=== PATIENT | male | born 1955 | race Caucasian/White ===

== ENCOUNTER → 2017-07-25 | Outpatient (CLI) | payer OTHER ==
[2014-01-31 09:52] VITALS: BP 123/82
[~2017-07-25] MED LIST: ASPIR LOW81 MG PO; FISH OIL1000 MG PO; HCTZ/LISINOPRIL1 TA1 PO; MULTIPLE VITAMI1 TAB PO; NAPROSYN250 M1 PO
[2017-07-25 12:01] LABS: EOS # 0.1 (0.04-0.40); EOS % 1.1 % (0.0-4.0); HEMATOCRIT 46.5 % (42.0-52.0); HEMOGLOBIN 15.3 g/dL (13.5-18.0); LYMPH# 1.7 (1.50-4.00); MEAN CELL VOLUME 86 fl (78-100); MEAN CORPUSCULAR HEMOGLOBIN 28 pg (27-31); MEAN CORPUSCULAR HGB CONC 33 g/dL (33-37); MEAN PLATELET VOLUME 9.1 fl (7.4-10.4); MONO # 0.6 (0.20-0.80); PLATELET COUNT 296 K/mm3 (130-400); RED BLOOD COUNT 5.43 M/mm3 (4.20-5.60); RED CELL DISTRIBUTION WIDTH 13.2 % (11.5-14.5); WHITE BLOOD COUNT 6.5 K/mm3 (4.8-10.8)
[2017-07-25 12:20] LABS: ALBUMIN 4.2 g/dL (3.5-5.0); BUN/CREATININE RATIO 24.3 (6.0-26.0); CALCIUM 9.3 mg/dL (8.4-10.2); POTASSIUM 4.2 mmol/L (3.6-5.0); TOTAL BILIRUBIN 0.5 mg/dL (0.2-1.3); TOTAL PROTEIN 7.5 g/dL (6.3-8.2)
== END ==
LOC: LAB 11:41
PROVIDERS: Internal Medicine
DX: Z00.00 Encounter for general adult medical examination without abnormal findings (principal); Z12.5 Encounter for screening for malignant neoplasm of prostate

== ENCOUNTER → 2019-03-19 | Outpatient (CLI) | payer MEDICARE, OTHER ==
[2014-01-31 09:52] VITALS: BP 123/82
[2019-03-19 10:16] LABS: BASO # 0.1 (0.02-0.10); EOS # 0.1 (0.04-0.40); HEMATOCRIT 48.1 % (42.0-52.0); HEMOGLOBIN 15.9 g/dL (13.5-18.0); LYMPH# 1.6 (1.50-4.00); MEAN CELL VOLUME 85 fl (78-100); MEAN CORPUSCULAR HEMOGLOBIN 28 pg (27-31); MEAN CORPUSCULAR HGB CONC 33 g/dL (33-37); MEAN PLATELET VOLUME 9.2 fl (7.4-10.4); MONO # 0.8 (0.20-0.80); NEU # 4.4 (1.40-6.50); PLATELET COUNT 329 K/mm3 (130-400); RED BLOOD COUNT 5.63 M/mm3 (4.20-5.60); RED CELL DISTRIBUTION WIDTH 12.9 % (11.5-14.5); WHITE BLOOD COUNT 6.9 K/mm3 (4.8-10.8)
[2019-03-19 10:23] LABS: ALBUMIN 4.5 g/dL (3.4-4.8); POTASSIUM 4.1 mmol/L (3.5-5.1)
[2019-03-19 10:24] LABS: CALCIUM 9.7 mg/dL (8.3-10.5)
[2019-03-19 10:26] LABS: TOTAL PROTEIN 7.8 g/dL (6.2-8.1)
[2019-03-19 10:28] LABS: TOTAL BILIRUBIN 0.6 mg/dL (0.2-1.2)
[2019-03-19 11:18] LABS: ERYTHROCYTE SEDIMENTATION RATE 1 mm/hr (0-20)
== END ==
LOC: LAB 10:03
PROVIDERS: Internal Medicine
DX: Z12.5 Encounter for screening for malignant neoplasm of prostate (principal); Z12.11 Encounter for screening for malignant neoplasm of colon; I10 Essential (primary) hypertension; E78.2 Mixed hyperlipidemia; N52.9 Male erectile dysfunction, unspecified

== ENCOUNTER → 2019-03-26 | Outpatient (CLI) | payer MEDICARE, OTHER ==
[2014-01-31 09:52] VITALS: BP 123/82
== END ==
LOC: LAB 16:30
DX: Z12.11 Encounter for screening for malignant neoplasm of colon (principal)

== ENCOUNTER → 2020-07-03 | Outpatient (CLI) | payer MEDICARE, OTHER ==
[2014-01-31 09:52] VITALS: BP 123/82
[2020-07-03 09:20] LABS: URINE WBC 0 /hpf (0-3)
[2020-07-03 09:35] LABS: EOS # 0.1 (0.04-0.40); HEMATOCRIT 49.2 % (42.0-52.0); HEMOGLOBIN 16.1 g/dL (13.5-18.0); LYMPH# 1.6 (1.50-4.00); MEAN CELL VOLUME 86 fl (78-100); MEAN CORPUSCULAR HEMOGLOBIN 28 pg (27-31); MEAN CORPUSCULAR HGB CONC 33 g/dL (33-37); MEAN PLATELET VOLUME 9.1 fl (7.4-10.4); MONO # 0.8 (0.20-0.80); NEU # 4.3 (1.40-6.50); PLATELET COUNT 321 K/mm3 (130-400); RED BLOOD COUNT 5.73 M/mm3 (4.20-5.60); RED CELL DISTRIBUTION WIDTH 13.4 % (11.5-14.5); WHITE BLOOD COUNT 6.7 K/mm3 (4.8-10.8)
[2020-07-03 09:40] LABS: POTASSIUM 4.2 mmol/L (3.5-5.1)
[2020-07-03 09:41] LABS: ALBUMIN 4.7 g/dL (3.4-4.8)
[2020-07-03 09:42] LABS: CALCIUM 9.6 mg/dL (8.3-10.5); URINE APPEARANCE CLEAR; URINE BILIRUBIN NEGATIVE (NEGATIVE); URINE BLOOD NEGATIVE (NEGATIVE); URINE COLOR YELLOW; URINE GLUCOSE NEGATIVE (NEGATIVE); URINE KETONE NEGATIVE (NEGATIVE); URINE LEUKOCYTE ESTERASE NEGATIVE (NEGATIVE); URINE NITRATE NEGATIVE (NEGATIVE); URINE PROTEIN(semi-quant) TRACE mg/dL (NEGATIVE); URINE UROBILINOGEN NORMAL (NORMAL)
[2020-07-03 09:43] LABS: TOTAL PROTEIN 7.9 g/dL (6.2-8.1)
[2020-07-03 09:45] LABS: TOTAL BILIRUBIN 0.6 mg/dL (0.2-1.2)
[2020-07-03 11:14] LABS: ERYTHROCYTE SEDIMENTATION RATE 2 mm/hr (0-20)
== END ==
LOC: LAB 09:09
PROVIDERS: Internal Medicine
DX: Z12.5 Encounter for screening for malignant neoplasm of prostate (principal); Z12.11 Encounter for screening for malignant neoplasm of colon; I10 Essential (primary) hypertension; E78.2 Mixed hyperlipidemia; K90.9 Intestinal malabsorption, unspecified; N40.0 Benign prostatic hyperplasia without lower urinary tract symptoms

== ENCOUNTER → 2020-07-17 | Outpatient (CLI) | payer MEDICARE, OTHER ==
[2014-01-31 09:52] VITALS: BP 123/82
[~2020-07-17] MED LIST changes: +ASPIRIN E.C. 8181 MG PO; +FISH OIL1 IU PO; +ONE-DAILY MULT1 EAC1 PO
== END ==
LOC: LAB 07:23
DX: Z12.11 Encounter for screening for malignant neoplasm of colon (principal)

== ENCOUNTER → 2020-08-05 | Outpatient (CLI) | payer MEDICARE, OTHER ==
[2014-01-31 09:52] VITALS: BP 123/82
== END ==
LOC: LAB 15:19
DX: R97.8 Other abnormal tumor markers (principal); R97.20 Elevated prostate specific antigen [PSA]

== ENCOUNTER 2020-10-23 21:43 | Emergency (ER) | payer MEDICARE ==
[~2020-10-23 21:43] MED LIST changes: -ASPIRIN E.C. 8181 MG PO; -FISH OIL1 IU PO; -ONE-DAILY MULT1 EAC1 PO
[2020-10-23] MEDS ORDERED: ONE-DAILY MULT1 EAC1 PO (22:04)
[2020-10-23] MEDS ORDERED: FISH OIL1 IU PO (22:04)
[2020-10-23] MEDS ORDERED: ASPIRIN E.C. 8181 MG PO (22:04)
[2020-10-23 23:04] VITALS: BP 150/88
== END 2020-10-23 23:04 | disposition home or self-care (01) ==
LOC: ED 21:43
DX: S80.861A Insect bite (nonvenomous), right lower leg, initial encounter (principal); W57.XXXA Bitten or stung by nonvenomous insect and other nonvenomous arthropods, initial encounter

== ENCOUNTER → 2021-07-06 | Outpatient (CLI) | payer MEDICARE ==
[~2021-07-06] MED LIST changes: +ASPIRIN E.C. 8181 MG PO; +FISH OIL1 IU PO; +ONE-DAILY MULT1 EAC1 PO
[2021-07-06 10:16] LABS: BASO # 0.04 K/mm3 (0.02-0.10); EOS # 0.05 K/mm3 (0.04-0.40); EOS % 0.9 % (0.0-4.0); HEMATOCRIT 47.4 % (42.0-52.0); HEMOGLOBIN 15.6 g/dL (13.5-18.0); LYMPH# 1.26 K/mm3 (1.50-4.00); MEAN CELL VOLUME 87 fl (78-100); MEAN CORPUSCULAR HEMOGLOBIN 29 pg (27-31); MEAN CORPUSCULAR HGB CONC 33 g/dL (33-37); MEAN PLATELET VOLUME 8.7 fl (7.4-10.4); MONO # 0.49 K/mm3 (0.20-0.80); NEU # 3.66 K/mm3 (1.40-6.50); PLATELET COUNT 321 K/mm3 (130-400); RED BLOOD COUNT 5.47 M/mm3 (4.20-5.60); WHITE BLOOD COUNT 5.5 K/mm3 (4.8-10.8)
[2021-07-06 12:26] LABS: ERYTHROCYTE SEDIMENTATION RATE 6 mm/hr (0-20)
[2021-07-06 15:41] LABS: ALBUMIN 4.5 g/dL (3.4-4.8); POTASSIUM 4.3 mmol/L (3.5-5.1)
[2021-07-06 15:42] LABS: CALCIUM 9.8 mg/dL (8.3-10.5)
[2021-07-06 15:44] LABS: TOTAL PROTEIN 7.6 g/dL (6.2-8.1)
[2021-07-06 15:46] LABS: TOTAL BILIRUBIN 0.6 mg/dL (0.2-1.2)
== END ==
LOC: LAB 09:38
PROVIDERS: Internal Medicine
DX: Z00.00 Encounter for general adult medical examination without abnormal findings (principal); Z12.11 Encounter for screening for malignant neoplasm of colon; I10 Essential (primary) hypertension; E78.2 Mixed hyperlipidemia; M15.9 Polyosteoarthritis, unspecified; K90.9 Intestinal malabsorption, unspecified; N40.0 Benign prostatic hyperplasia without lower urinary tract symptoms; U07.1 COVID-19; R97.8 Other abnormal tumor markers; Z28.3 Underimmunization status

== ENCOUNTER 2023-05-13 11:48 | Emergency (ER) | payer MEDICARE ==
[~2023-05-13] VITALS: Ht 177.8 cm; Wt 89.5 kg
[2023-05-13 12:13] LABS: BASO # 0.03 K/mm3 (0.02-0.10); EOS # 0.07 K/mm3 (0.04-0.40); EOS % 0.5 % (0.0-4.0); HEMATOCRIT 46.3 % (42.0-52.0); HEMOGLOBIN 15.3 g/dL (13.5-18.0); LYMPH# 2.25 K/mm3 (1.50-4.00); MEAN CELL VOLUME 87 fl (78-100); MEAN CORPUSCULAR HEMOGLOBIN 29 pg (27-31); MEAN CORPUSCULAR HGB CONC 33 g/dL (33-37); MEAN PLATELET VOLUME 8.4 fl (7.4-10.4); NEU # 10.62 K/mm3 (1.40-6.50); PLATELET COUNT 303 K/mm3 (130-400); RED BLOOD COUNT 5.35 M/mm3 (4.20-5.60); RED CELL DISTRIBUTION WIDTH 13.6 % (11.5-14.5); WHITE BLOOD COUNT 14.6 K/mm3 (4.8-10.8)
[2023-05-13 12:25] LABS: ALBUMIN 4.1 g/dL (3.4-4.8); SODIUM 140 mmol/L (136-145)
[2023-05-13 12:28] LABS: GLUCOSE 106 mg/dL (75-110); TOTAL PROTEIN 6.7 g/dL (6.2-8.1)
[2023-05-13 12:29] LABS: CARBON DIOXIDE 24 mmol/L (23-31)
[2023-05-13 12:33] LABS: AST-SGOT 17 U/L (5-34)
[2023-05-13 12:34] LABS: ALT/SGPT 28 U/L (0-55)
[2023-05-13 13:08] LABS: D-DIMER 0.46 mg/L FEU (0.15-0.50)
[2023-05-13 16:30] VITALS: BP 107/72
[2023-05-18 13:35] LABS: TROPONIN-I < 0.030 ng/mL (0.00-0.033)
== END 2023-05-13 16:30 | disposition home or self-care (01) ==
LOC: ED 11:48
PROVIDERS: Nurse Practitioner
DX: E86.0 Dehydration (principal); R55 Syncope and collapse
CPT/HCPCS: J7030

== ENCOUNTER → 2023-05-19 | Outpatient (CLI) | payer MEDICARE | LOC: RAD 07:50 | DX: R55 Syncope and collapse (principal) ==

== ENCOUNTER 2023-05-26 09:00 | Outpatient (RCR) | payer MEDICARE | END 2023-06-15 | disposition home or self-care (01) | LOC: PT | DX: M47.812 Spondylosis without myelopathy or radiculopathy, cervical region (principal) ==

== ENCOUNTER → 2023-09-10 | Outpatient (CLI) | payer MEDICARE ==
[2023-09-10 07:40] LABS: BASO # 0.02 K/mm3 (0.02-0.10); EOS # 0.02 K/mm3 (0.04-0.40); EOS % 0.4 % (0.0-4.0); HEMATOCRIT 44.2 % (42.0-52.0); HEMOGLOBIN 14.5 g/dL (13.5-18.0); LYMPH# 0.93 K/mm3 (1.50-4.00); MEAN CELL VOLUME 87 fl (78-100); MEAN CORPUSCULAR HEMOGLOBIN 29 pg (27-31); MEAN CORPUSCULAR HGB CONC 33 g/dL (33-37); MEAN PLATELET VOLUME 8.5 fl (7.4-10.4); MONO # 0.67 K/mm3 (0.20-0.80); NEU # 3.57 K/mm3 (1.40-6.50); PLATELET COUNT 245 K/mm3 (130-400); RED BLOOD COUNT 5.09 M/mm3 (4.20-5.60); RED CELL DISTRIBUTION WIDTH 12.6 % (11.5-14.5); WHITE BLOOD COUNT 5.2 K/mm3 (4.8-10.8)
[2023-09-10 07:49] LABS: ALBUMIN 4.2 g/dL (3.4-4.8)
[2023-09-10 07:50] LABS: CALCIUM 9.6 mg/dL (8.3-10.5)
[2023-09-10 07:52] LABS: TOTAL PROTEIN 6.8 g/dL (6.2-8.1)
[2023-09-10 07:54] LABS: TOTAL BILIRUBIN 0.4 mg/dL (0.2-1.2)
[2023-09-10 07:58] LABS: MAGNESIUM 1.72 mg/dL (1.60-2.60)
== END ==
LOC: LAB 07:16
PROVIDERS: Internal Medicine
DX: Z12.11 Encounter for screening for malignant neoplasm of colon (principal); Z11.59 Encounter for screening for other viral diseases; I10 Essential (primary) hypertension; E78.2 Mixed hyperlipidemia

== ENCOUNTER → 2024-03-05 | Outpatient (CLI) | payer MEDICARE | LOC: LAB 14:32 | DX: C61 Malignant neoplasm of prostate (principal) ==

== ENCOUNTER → 2024-08-31 | Outpatient (CLI) | payer MEDICARE ==
[2024-08-31 08:38] LABS: BASO # 0.05 K/mm3 (0.02-0.10); EOS % 1.5 % (0.0-4.0); HEMATOCRIT 32.3 % (42.0-52.0); HEMOGLOBIN 10.2 g/dL (13.5-18.0); LYMPH# 1.55 K/mm3 (1.50-4.00); MEAN CELL VOLUME 84 fl (78-100); MEAN CORPUSCULAR HEMOGLOBIN 27 pg (27-31); MEAN CORPUSCULAR HGB CONC 32 g/dL (33-37); MEAN PLATELET VOLUME 8.9 fl (7.4-10.4); MONO # 0.78 K/mm3 (0.20-0.80); NEU # 3.97 K/mm3 (1.40-6.50); PLATELET COUNT 477 K/mm3 (130-400); RED BLOOD COUNT 3.85 M/mm3 (4.20-5.60); RED CELL DISTRIBUTION WIDTH 15.8 % (11.5-14.5); WHITE BLOOD COUNT 6.5 K/mm3 (4.8-10.8)
[2024-08-31 08:43] LABS: ALBUMIN 3.9 g/dL (3.4-4.8)
[2024-08-31 08:44] LABS: CALCIUM 8.5 mg/dL (8.3-10.5)
[2024-08-31 08:45] LABS: TOTAL PROTEIN 6.6 g/dL (6.2-8.1)
[2024-08-31 08:47] LABS: TOTAL BILIRUBIN 0.4 mg/dL (0.2-1.2)
[2024-08-31 08:52] LABS: MAGNESIUM 1.93 mg/dL (1.60-2.60)
== END ==
LOC: LAB 07:22
PROVIDERS: Internal Medicine
DX: C61 Malignant neoplasm of prostate (principal); I10 Essential (primary) hypertension; E78.2 Mixed hyperlipidemia; K90.9 Intestinal malabsorption, unspecified